=== PATIENT | male | born 1960 | race Caucasian/White ===

== ENCOUNTER 2016-11-07 15:53 | Emergency (ER) | payer OTHER ==
[~2016-11-07] VITALS: Ht 177.8 cm; Wt 69.4 kg
--- NOTE | ~2016-11-07 | EKG ---
[address] [place] [address] ELECTROCARDIOGRAM REPORT Name: REEMA ZENG ADJENNINGS Room #: [facility] [id number] Admission: 11/07/16 Attend Phys: Discharge: Date of : 56 Report #: [id number] THIS REPORT FOR: //name// [facility] ED Test Date: 2016-11-07 Test Time: 16:32:52 Pat Name: REEMA ZENG Department: Room: Gender: Labeling Associate: MZOOK : 1960 Requested By: Gian Ordoñez Order Number: [id number] MD: Julien Hager Measurements Intervals [place] Rate: 74 P: 93 [place]: 158 QRS: 82 QRSD: 103 T: 58 QT: 361 QTc: 401 Interpretive Statements Sinus rhythm Left atrial enlargement No previous ECG available for comparison Electronically Signed On 11-07-2016 16:53:31 COMPANY [employer] by Julien Hager [email or web address] <ELECTRONICALLY SIGNED> By: Julien Hager MD 11/07/16 1653 1632 1632 Julien Hager MD /EPI
[~2016-11-07 15:53] MED LIST: MIRALAX255 GM PO; NOHOMEMEDICATIONS
[2016-11-07 17:14] LABS: ABSOLUTE NEUTROPHILS 4.4 thou/uL (1.4-8.2); BASOPHILS 1.2 % (0.0-2.0); EOSINOPHILS 1.1 % (0.0-3.0); HEMATOCRIT 43.1 % (42.0-52.0); HEMOGLOBIN 14.7 gm/dL (14.0-18.0); LYMPHOCYTES 25.6 % (24.0-44.0); MANUAL DIFF NO; MCHC 34.2 % (28.0-37.0); MCV 84.9 fL (80.0-100.0); MONOCYTES 13.8 % (1.0-8.0); PLATELET COUNT 185 thou/uL (150-400); POLYS 58.3 % (36.0-66.0); RBC 5.08 mil/uL (4.50-6.00); RDW 12.4 % (10.5-14.5); WBC 7.6 thou/uL (4.0-11.0)
[2016-11-07 17:28] LABS: ANION GAP 8 mmol/L (7-16); BUN 13 mg/dL (7-18); CALCIUM 8.9 mg/dL (8.5-10.1); CHLORIDE 101 mmol/L (98-107); CO2 31 mmol/L (21-32); CREATININE 1.2 mg/dL (0.6-1.3); GLUCOSE 101 mg/dL (70-99); POTASSIUM 4.2 mmol/L (3.5-5.1); SODIUM 140 mmol/L (136-145)
[2016-11-07 17:43] LABS: ALBUMIN 3.6 g/dL (3.4-5.0); ALKALINE PHOSPHATASE 55 U/L (46-116); DIRECT BILIRUBIN 0.1 mg/dL (<0.1-0.3); NT-PRO BRAIN NAT PEPTIDE 92 pg/mL (<300); SGOT 24 U/L (15-37); SGPT 42 U/L (30-65); TOTAL BILIRUBIN 0.3 mg/dL (<0.1-1.0); TOTAL PROTEIN 7.6 g/dL (6.4-8.2); TROPONIN-I < 0.04 ng/mL (<0.04-0.07)
[2016-11-07 18:52] VITALS: BP 124/67
[2016-11-07] MEDS ORDERED: NORCO 5-325 TA1 EACH PO (18:55)
[2016-11-07] MEDS ORDERED: ACYCLOVIR 400400 MG PO (18:55)
== END 2016-11-07 18:55 | disposition home or self-care (01) ==
LOC: ER 15:53
PROVIDERS: Nurse Practitioner
DX: B02.9 Zoster without complications (principal); J06.9 Acute upper respiratory infection, unspecified; E16.2 Hypoglycemia, unspecified